=== PATIENT | male | born 1995 | race Caucasian/White ===

== ENCOUNTER 2019-04-15 14:57 | Emergency (ER) | payer SELFPAY ==
[~2019-04-15] VITALS: Ht 469.9 cm; Wt 90.7 kg
[2019-04-15] MEDS ORDERED: PREDNISONE20 MG PO (17:51)
[2019-04-15] MEDS ORDERED: ZITHROMAX250 MG PO (17:51)
[2019-04-15] MEDS ORDERED: VENTOLIN HFA18 GM INH (17:51)
== END 2019-04-15 18:01 | disposition home or self-care (01) ==
LOC: ED 14:57
DX: R56.9 Unspecified convulsions (principal); J40 Bronchitis, not specified as acute or chronic; F17.200 Nicotine dependence, unspecified, uncomplicated; Z91.018 Allergy to other foods
CPT/HCPCS: 70450; 71046; 80053; 83735; 85025; 94640; 99284-25

== ENCOUNTER 2019-07-11 02:07 | Emergency (ER) | payer SELFPAY ==
[~2019-07-11] VITALS: Ht 469.9 cm; Wt 97.5 kg
[~2019-07-11 02:07] MED LIST: PREDNISONE20 MG PO; VENTOLIN HFA18 GM INH; ZITHROMAX250 MG PO
== END 2019-07-11 02:51 | disposition home or self-care (01) ==
LOC: ED 02:07
DX: S62.610A Displaced fracture of proximal phalanx of right index finger, initial encounter for closed fracture (principal); W19.XXXA Unspecified fall, initial encounter; J45.909 Unspecified asthma, uncomplicated; F17.200 Nicotine dependence, unspecified, uncomplicated; Z91.018 Allergy to other foods
CPT/HCPCS: 73140; 99283-25; A9270